=== PATIENT | male | born 1935 | race Caucasian/White ===

== ENCOUNTER 2017-12-04 07:13 | Emergency (ER) | payer OTHER ==
[2017-12-04 07:23] VITALS: BP 130/73
[2017-12-04 07:27] VITALS: PULSE 84; RESP 18; TEMP 97.5; O2SAT 94
--- NOTE | 2017-12-04 07:36 | EDPHY ---
H & P Time Seen by Provider: 12/04/17 07:25 HPI/ROS: CHIEF COMPLAINT: Skin tear History by patient HISTORY OF PRESENT ILLNESS: 82-year-old man with end-stage renal disease on multiple medications presents complaining of skin tear to right arm after he tripped over the rug getting out of his shower and scraping his right forearm on the counter of the sink. Tetanus status is up-to-date. He denies any other pain or injury. He states it was purely mechanical fall there was no syncope or loss of consciousness. He is denying any other pain or injury. REVIEW OF SYSTEMS: As in HPI, and all other systems reviewed and are negative Smoking Status: Former smoker Physical Exam: General Appearance: Alert and no distress. Head: Normocephalic, atraumatic Eyes: Pupils equal and round no injection. Extraocular movements are intact. Musculoskeletal: Neck is supple and nontender. Extremities: Right arm full range of motion at shoulder, wrist and elbow. Positive 5 by 8 cm skin tear over dorsal forearm just proximal to the elbow crease with bleeding controlled. Radial pulses 2+ and equal to the left, distal sensation is intact, distal cap refill less than 3 sec Skin: No rashes or lesions except as described above. Constitutional: Initial Vital Signs Temperature (C) 36.4 C 12/04/17 07:16 Heart Rate 84 12/04/17 07:16 Respiratory Rate 18 12/04/17 07:16 Blood Pressure 130/73 H 12/04/17 07:16 O2 Sat (%) 94 12/04/17 07:16 Allergies/Adverse Reactions: acetaminophen [From Tylenol] Allergy (Severe, Verified 06/19/15 13:14) Rash Penicillins Allergy (Severe, Verified 06/19/15 13:14) Rash ciprofloxacin [From Cipro] Allergy (Verified 06/19/15 13:14) Iodinated Contrast- Oral and IV Dye Allergy (Verified 12/04/17 07:25) Home Medications: Medication Instructions Recorded Amlodipine Besylate 12/04/17 Aspirin 12/04/17 Calcium Carb/Mag Ox/Zinc Sulf 12/04/17 Cholecalciferol (Vitamin D3) 12/04/17 Diovan 12/04/17 Flomax 12/04/17 Furosemide 12/04/17 Humalog 12/04/17 Omeprazole 12/04/17 Renavite 12/04/17 Sensipar 12/04/17 Synthroid 12/04/17 VITAMIN E 12/04/17 Vitamin A 12/04/17 MDM/Departure - [facility] ED Course/Re-evaluation: 82-year-old man presents with skin tear to right arm. Wound was cleaned cleansed and dressed with Mepilex dressing. Patient was instructed with home care discharged home in stable condition. - Depart Disposition: Home, Routine, Self-Care Clinical Impression: Skin tear of forearm without complication Qualifiers: Encounter type: initial encounter Laterality: right Qualified Code(s): S51.811A - Laceration without foreign body of right forearm, initial encounter Condition: Good Instructions: Skin Tear (ED) Additional Instructions: You were seen by Dr. Colleen Johnson today. Keep Mepilex dressing on for the next 3-5 days and then replace until healed. Watch for signs and was infection including but not limited to fever, increased pain or redness or pus draining from the wound. Return for any worsening or new concerns. Referrals: RADHA COURTNEY [Primary Care Provider] - As per Instructions
== END 2017-12-04 07:56 | disposition home or self-care (01) ==
LOC: CED 07:13
DX: S51.811A Laceration without foreign body of right forearm, initial encounter (principal); Z79.4 Long term (current) use of insulin; Z87.891 Personal history of nicotine dependence; Z79.82 Long term (current) use of aspirin; W18.2XXA Fall in (into) shower or empty bathtub, initial encounter; Y99.8 Other external cause status; Y93.E1 Activity, personal bathing and showering

== ENCOUNTER 2017-12-10 09:38 | Emergency (ER) | payer OTHER ==
--- NOTE | 2017-12-10 09:59 | CPEKG ---
Heart Rate: 81 RR Interval: 741 P-R Interval: 244 QRSD Interval: 106 QT Interval: 416 QTC Interval: 483 P Farwell: -55 QRS Farwell: 82 T Wave Farwell: 43 EKG Severity - ABNORMAL ECG - EKG Impression: SINUS OR ECTOPIC ATRIAL RHYTHM EKG Impression: FIRST DEGREE AV BLOCK EKG Impression: BORDERLINE PROLONGED QT INTERVAL Electronically Signed By: Sheng Sánchez 10-Dec-2017 10:00:26
--- NOTE | 2017-12-10 10:02 | EDPHY ---
H & P Time Seen by Provider: 12/10/17 09:48 HPI/ROS: CHIEF COMPLAINT: Confusion, hypoxia HISTORY OF PRESENT ILLNESS: The patient is an 82-year-old man who was brought to the emergency department after dialysis this morning. Patient was here last week after a fall and skin tear to his right forearm. He also broke his front tooth. His son states that he began acting confused yesterday. He showed up to dialysis even though it was Sunday and the door was locked. He returned home and went back to dialysis today at 3:00 a.m. And waited until they opened. When he arrived there staff noticed that he was confused. No focal neurologic deficits. He was also noticed to have a low oxygen at 85% on room air. He was given oxygen and his mental status improved and he was dialyzed. After dialysis he was sent here to the emergency department for further evaluation. He states to me that he has had a mild dry cough and a slightly runny nose. No headache. No new trauma. No pain at his skin tear. No chest pain. 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 REVIEW OF SYSTEMS: Constitutional: See HPI EENTM: denies: blurred vision, double vision, nose congestion Respiratory: See HPI Cardiac: denies: chest pain, irregular heart rate, lightheadedness, palpitations Gastrointestinal/Abdominal: denies: abdominal pain, diarrhea, nausea, vomiting, blood streaked stools Genitourinary: denies: dysuria, frequency, hematuria, pain Musculoskeletal: denies: joint pain, muscle pain Skin: See HPI Neurological: denies: headache, numbness, paresthesia, tingling, dizziness, weakness Hematologic/Lymphatic: denies: blood clots, easy bleeding, easy bruising Immunologic/allergic: denies: HIV/AIDS, transplant EXAM: GENERAL: Thin, well-appearing, [id number] here he is 97% on room air. HEAD: Atraumatic, normocephalic. EYES: Pupils equal round and reactive to light, extraocular movements intact, sclera anicteric, conjunctiva are normal. ENT: TMs normal, nares patent, oropharynx clear without exudates. Moist mucous membranes. NECK: Normal range of motion, supple without lymphadenopathy or JVD. LUNGS: Mild bilateral crackles HEART: Regular rate and rhythm without murmurs, rubs or gallops. ABDOMEN: Soft, nontender, normoactive bowel sounds. No guarding, no rebound. No masses appreciated. BACK: No CVA tenderness, no spinal tenderness, step-offs or deformities EXTREMITIES: Normal range of motion, no pitting or edema. No clubbing or cyanosis. NEUROLOGICAL: Cranial nerves II through XII grossly intact. Normal speech, normal gait. 5/5 strength, normal movement in all extremities, normal sensation PSYCH: Normal mood, normal affect. SKIN: Right forearm skin tear foul-smelling but not obviously infected or erythematous. Source: Patient, Family Exam Limitations: No limitations - Personal History Tetanus Vaccine Date: WITHIN 5 YEARS - Medical/Surgical History Hx Asthma: No Hx Chronic Respiratory Disease: No Hx Diabetes: Yes Hx Cardiac Disease: Yes Hx Renal Disease: Yes Hx Cirrhosis: No Hx Alcoholism: No Hx HIV/AIDS: No Hx Splenectomy or Spleen Trauma: No Other PMH: Diabetes, renal failure on dialysis, CABG ; SHUNT LUE - Family History Significant Family History: Heart disease - Social History Smoking Status: Former smoker Alcohol Use: Sober Drug Use: None Constitutional: Initial Vital Signs Temperature (C) 36.7 C 12/10/17 10:07 Heart Rate 87 12/10/17 10:07 Respiratory Rate 16 12/10/17 10:07 Blood Pressure 143/85 H 12/10/17 10:07 O2 Sat (%) 93 12/10/17 10:07 O2 Delivery Mode Room Air O2 (L/minute) 2 Allergies/Adverse Reactions: acetaminophen [From Tylenol] Allergy (Severe, Verified 12/10/17 10:05) Rash Penicillins Allergy (Severe, Verified 12/10/17 10:05) Rash ciprofloxacin [From Cipro] Allergy (Verified 12/10/17 10:05) Iodinated Contrast- Oral and IV Dye Allergy (Verified 12/10/17 10:05) Home Medications: Medication Instructions Recorded Amlodipine Besylate 12/04/17 Aspirin 12/04/17 Calcium Carb/Mag Ox/Zinc Sulf 12/04/17 Cholecalciferol (Vitamin D3) 12/04/17 Diovan 12/04/17 Flomax 12/04/17 Furosemide 12/04/17 Humalog 12/04/17 Omeprazole 12/04/17 Renavite 12/04/17 Sensipar 12/04/17 Synthroid 12/04/17 VITAMIN E 12/04/17 Vitamin A 12/04/17 Cephalexin [Keflex] 500 mg PO TID #21 cap 12/10/17 Medical Decision Making - Diagnostics EKG Interpretation: An EKG obtained and was read and documented in trace view. Please see trace view for full reading and report. Sinus rhythm, first-degree block, no acute ischemic changes Imaging: I viewed and interpreted images myself (Mild edema) ED Course/Re-evaluation: 11:04 a.m. We discussed the dialysis with the patient's dialysis center. They took 2 kilos off of him today which is standard. He was essentially down to his dry weight. We called because he appears to have some edema on his chest x- ray and has crackles on exam. He remains saturating 97% here in the ER while at rest however on room air. We will road test him. I do have some concerned about his foul-smelling wound although it visually does not appear infected and his lab work is unremarkable. 11:[address] performed a road test. The patient's oxygen saturations remained around 88-92%. I am however concerned that he will decompensate. I spoke with Dr. Leo Connelly who initially accepted admission but then the patient and son tell me that they usually received their care [facility] and would prefer to go there. I will contact [facility] They are also refusing ambulance transport. He does still make urine. He may benefit from a extra dose of Lasix. He does not appear septic however some observation of his wound would be helpful as well. 11:35 a.m. we discussed further. The patient is now refusing admission. I will give him a dose of Lasix here. He and his son feel confident that he will do okay at home. I encouraged him strongly to return if he has shortness of breath or fevers or altered mental status etc. They both agree. Son states that he will check on him frequently. His wound was cleaned and dressed. 11:40 a.m. patient's urinalysis is suspicious for infection. We will send for cultures. I will start him on Rocephin. I again urged him to stay in the hospital. He states that if he can get in [facility] he will stay there 12:20 p.m. the patient is again refusing admission. They do not want to wait for [facility] to have a bed. They do not want to go to [place]. He has received Lasix and Rocephin here in the ER. I will continue him on Keflex for his urine and possibly wound infection. I gave strict return precautions. They will sign out AMA. Differential Diagnosis: Partial list of the Differential diagnosis considered include but were not limited to; CHF, sepsis, cellulitis, fluid overload and although unlikely based on the history and physical exam, I also considered PE, acute coronary disease. - Data Points Laboratory Results: Laboratory Results 12/10/17 10:13 12/10/17 10:13 Microbiology Results: MICROBIOLOGY 12/10/17 11:23 Nasal, Sinus - Swab Respiratory Panel (PCR) - Final No Organism Detected Medications Given: Discontinued Medications Furosemide (Lasix Injection) 40 mg IVP EDNOW ONE Stop: 12/10/17 11:30 Last Admin: 12/10/17 11:38 Dose: 40 mg Ceftriaxone Sodium 1 gm/ (Sterile Water) 10 mls @ 150 mls/hr IV EDNOW ONE PRN Reason: Protocol Stop: 12/10/17 11:52 Last Admin: 12/10/17 12:17 Dose: 10 mls Departure - Departure Disposition: Acute Care Hospital Not [facility] Clinical Impression: Pulmonary edema Skin tear of forearm without complication Qualifiers: Encounter type: subsequent encounter Laterality: right Qualified Code(s): S51.811D - Laceration without foreign body of right forearm, subsequent encounter Urinary tract infection Qualifiers: Urinary tract infection type: acute cystitis Hematuria presence: without hematuria Qualified Code(s): N30.00 - Acute cystitis without hematuria Condition: Fair Instructions: Pulmonary Edema (ED), Urinary Tract Infection in Men (ED), Skin Tear (ED) Referrals: RADHA COURTNEY [Primary Care Provider] - As per Instructions Prescriptions: Cephalexin [Keflex] 500 mg PO TID #21 cap
[2017-12-10 10:12] VITALS: TEMP 98.1
[2017-12-10 10:21] LABS: PLATELET COUNT 130 10^3/uL (150-400)
[2017-12-10 10:30] LABS: INR 1.05 (0.83-1.16); PROTIME(PATIENT) 13.6 SEC (12.0-15.0)
[2017-12-10] MEDS ORDERED: FUROSEMIDE 40 MG/4 ML VIAL IVP ONE (11:29)
[2017-12-10] MEDS ORDERED: cefTRIAXone 1 GM in STERILE WATER INJ 10 ML IV ONE (11:49)
[2017-12-10] MEDS ORDERED: cefTRIAXone 1 GM VIAL ONE (12:09)
[2017-12-10 13:04] VITALS: BP 137/77; PULSE 82; RESP 14; O2SAT 96
== END 2017-12-10 12:38 | disposition short-term general hospital (02) ==
LOC: CED 09:38
DX: S51.811D Laceration without foreign body of right forearm, subsequent encounter (principal); N30.00 Acute cystitis without hematuria; B95.2 Enterococcus as the cause of diseases classified elsewhere; J81.0 Acute pulmonary edema; E11.9 Type 2 diabetes mellitus without complications; Z79.82 Long term (current) use of aspirin; Z95.1 Presence of aortocoronary bypass graft; Z87.891 Personal history of nicotine dependence; W18.39XD Other fall on same level, subsequent encounter
CPT/HCPCS: 71046; 93005; 96374; 96375; 99285; J0696; J1940; 80048-PO; 81003-PO; 81015-PO; 82247-PO; 83605-PO; 84484-PO; 85025-PO; 85610-PO; 85730-PO